=== PATIENT | female | born 1980 | race Caucasian/White ===

== ENCOUNTER 2017-05-16 21:23 | Emergency (ER) | payer BC ==
[~2017-05-16] VITALS: Ht 172.7 cm; Wt 97.0 kg
[2017-05-16] MEDS ORDERED: TOPAMAX50 M1 PO (21:38)
[2017-05-16] MEDS ORDERED: TOPAMAX25 MG PO (21:45)
[2017-05-16] MEDS ORDERED: PHENTERMINE37.5 M1 PO (21:46)
[2017-05-16] MEDS ORDERED: IBUPROFEN600 MG PO (22:47)
[2017-05-16] MEDS ORDERED: KEFLEX500 MG PO (22:47)
[2017-05-16] MEDS ORDERED: BENADRYL 50MG C50 MG PO (22:47)
[2017-05-16 22:59] VITALS: BP 132/88
== END 2017-05-16 22:57 | disposition home or self-care (01) | DRG 607 ==
LOC: ED 21:23
DX: S40.861A Insect bite (nonvenomous) of right upper arm, initial encounter (principal); L08.9 Local infection of the skin and subcutaneous tissue, unspecified; W57.XXXA Bitten or stung by nonvenomous insect and other nonvenomous arthropods, initial encounter